=== PATIENT | female | born 1995 | race Caucasian/White ===

== ENCOUNTER 2017-05-17 21:51 | Emergency (ER) | END 2017-05-18 02:06 | disposition left against medical advice (07) ==

== ENCOUNTER 2017-10-22 12:04 | Emergency (ER) | END 2017-10-22 17:10 | disposition home or self-care (01) ==

== ENCOUNTER 2017-10-25 12:17 | Emergency (ER) | END 2017-10-25 14:46 | disposition home or self-care (01) ==

== ENCOUNTER 2018-02-22 17:28 | Outpatient (CLI) | END 2018-02-22 21:05 | disposition home or self-care (01) ==

== ENCOUNTER 2018-03-31 09:04 | Outpatient (CLI) | END 2018-03-31 10:06 | disposition home or self-care (01) ==

== ENCOUNTER 2018-05-05 18:38 | Outpatient (CLI) | payer MEDICAID ==
[~2018-05-05] VITALS: Ht 160 cm; Wt 73.5 kg
[~2018-05-05 18:38] MED LIST: ACET325T33 PO; CALC600T24 PO; FERR134T PO; PREN1TAB62 PO
[2018-05-05 18:51] VITALS: BP 114/62; PULSE 87; RESP 19; Ht 160 cm; Wt 73.5 kg
[2018-05-05] MEDS ORDERED: ACETAMINOPHEN 500 MG TAB PO STA (22:09)
[2018-05-05] MEDS ORDERED: LACTATED RINGER'S 1,000 ML IV ONE (22:30)
--- NOTE | 2018-05-06 02:05 | PN ---
Triage Information Date/Time Late entry note for exam for May 05, 2018 Reason for visit: Uterine contractions Weeks of Gestation 33 weeks and 6 days /Para 3 para 2 Diabetes: none Hypertention: none Additional information 23-year-old with IUP at 33 weeks and 6 days presented with complaint of uterine contractions and lower abdominal discomfort. She denies leaking of fluid, vaginal bleeding or decreased movement. Denies any complication during her course. Denies any urinary symptoms. Objective Vital Signs Date Temp Pulse Resp B/P (MAP) Pulse Ox O2 O2 Flow FiO2 Time Delivery Rate 05/05/18 98.1 87 19 114/62 18:51 (79) Heart Rate: 130's Heart Rate Comments Category 1 Contractions: >10 Minutes Apart Exam General appearance: Alert and oriented x4 appears to be in mild distress. Abdomen: Soft, gravid, fundal height consider gestational age Rare contractions noted on the monitor Symptoms resolved after hydration Exam: Cervix closed and long testing reassuring Cervical length: 4.7 cm BPP: 11/18 Results/Medications Results 24 hrs Laboratory Tests Test 05/05/18 20:30 Urine Color STRAW Urine Clarity CLEAR Urine pH 6.0 Urine Specific [place] 1.010 Urine Ketones NEGATIVE Urine Nitrite NEGATIVE Urine Bilirubin NEGATIVE Urine Urobilinogen NEGATIVE Urine Leukocyte Esterase NEGATIVE Urine Hemoglobin NEGATIVE Urine Glucose NEGATIVE Urine Total Protein NEGATIVE Imaging Results PROCEDURE: US OB biophysical profile. Ultrasound cervix CLINICAL INDICATION: decreased movements, PTL TECHNIQUE: Multiple sonographic images of the pelvis were obtained. In addition, transvaginal images of the cervix were obtained. The images were reviewed on a PACS workstation. COMPARISON: 03/31/18 FINDINGS: The cervix measures 4.7 cm in length. There is a single live intrauterine gestation. Cardiac activity is present with 163 beats per minute. There is a vertex transverse right presentation. The placenta is fundal. There is no evidence of placental abruption. There is a normal amount of amniotic fluid with an COLE = 19.6 cm. Biophysical profile: movement 2/2 tone 2/2. breathing 2/2 COLE 2/2 Total 11/18 RPTAT: AA . IMPRESSION: Normal biophysical profile. Cervix measures 4.7 cm in length. Disposition: Discharge Assessment/Plan IUP at 33 weeks and 6 days False labor pain Resolved with IV hydration and Tylenol Patient was asymptomatic prior to discharge home testing reassuring Strict labor precautions kick count follow-up with primary OB office within 48 hours after discharge with the hospital discussed with patient Advised patient to contact OB office and report current visit to triage for follow-up plan Patient verbalized understanding. All questions were answered to patient's best satisfaction. "Oral hydration discussed with patient NATALIE MALIK MD May 06, 2018 02:05
== END 2018-05-06 02:06 | disposition home or self-care (01) ==
LOC: OBT 18:38 → L-D 18:41 → OBT 05-06 02:06
PROVIDERS: ATTEND Obstetrics & Gynecology
DX: O62.9 Abnormality of forces of labor, unspecified (principal); Z3A.33 33 weeks gestation of pregnancy
CPT/HCPCS: 76817; 76818; 81003; 96360; 96361; J7120; Z7500; Z7610; G0463

== ENCOUNTER 2018-06-01 16:06 | Outpatient (CLI) | payer MEDICAID ==
[~2018-06-01] VITALS: Ht 160 cm; Wt 74.5 kg
[~2018-06-01 16:06] MED LIST changes: -ACET325T33 PO
[2018-06-01 16:44] VITALS: Ht 160 cm; Wt 74.5 kg
[2018-06-01 16:45] VITALS: BP 118/56; PULSE 82; RESP 18
--- NOTE | 2018-06-01 18:32 | TRIAGE ---
OB Triage Datetime Report Generated by CPN: 06/01/2018 18:32 Datetime: 06/01/2018 16:49 Labor Evaluation Frequency: 0 Monitor Mode: External Pattern: Normal: <= 5 Contractions in 10 Minutes Resting Tone [place]: Relaxed Heart Rate FHR Baseline Rate: 135 Monitor Mode: External US Variability: Moderate 6-25 bpm Accelerations: 15X15 Decelerations: None Category: Category I Datetime: 06/01/2018 16:48 Assessment Type: Triage Maternal Assessment Level of Consciousness: Fully Conscious DTR's/Clonus: DTRs 2+; No Clonus Headache: Denies Blurred Vision: No Respiratory Effort: Unlabored; Regular Rhythm; Equal Expansion Breath Sounds, Left: Clear and Equal Breath Sounds, Right: Clear and Equal Nausea/Vomiting: Denies RUQ Epigastric Pain: Denies Lower Extremities Edema: None Degree: None Upper Extremities Edema: None Degree: None Facial Edema: None Fall Risk Assessment History of Falling: (0) No Secondary Diagnosis: (0) No Ambulatory Aid: (0) Bedrest/Nurse Assist IV Therapy: (0) No Gait: (0) Normal/Bedrest/Immobile Mental Status: (0) Oriented to Own Ability Fall Score: 0 Fall Risk Score Definition: No Risk: No action required Datetime: 06/01/2018 16:47 Time of Arrival: 06/01/2018 16:04 EGA: 37.5 Arrived By: Ambulatory Arrived From: Dr. Malik Chief Complaint: UC's and leaking Movement: Present Contractions: Irregular Rupture of Membranes: Unsure Vaginal Bleeding: Normal Show Vaginal Discharge: Present Recent Sexual Intercouse: Denies Abdominal Trauma: Not Applicable Patient Complaints: Contractions; Other Initial Plan: NST BPP COLE AND ROM+ Datetime: 05/21/2018 18:05 EGA: 36.1 Datetime: 05/05/2018 18:53 Fall Score: 0 Fall Risk Score Definition: No Risk: No action required Datetime: 03/31/2018 09:14 Fall Score: 0 Fall Risk Score Definition: No Risk: No action required Datetime: 03/31/2018 09:13 EGA: 28.6 Datetime: 02/22/2018 18:36 EGA: 23.4 Datetime: 02/22/2018 17:31 Fall Score: 0 Fall Risk Score Definition: No Risk: No action required
--- NOTE | 2018-06-19 01:07 | PN ---
Triage Information Date/Time Reason for visit: Possible leakage of fluid Weeks of Gestation 37 weeks and 3 days /Para Diabetes: none Hypertention: none Objective Heart Rate: 140's Contractions: None Results/Medications Imaging Results There is a single live intrauterine gestation. heart rate is 128 beats per minute. The position is cephalic. The placenta is fundal, grade II - III. The COLE is 11.2 cm. Breathing Movement: 2 Gross Body Movement: 2 Tone: 2 Qualitative Amniotic Fluid Volume: 2 TOTAL: 8 IMPRESSION: 1. Single viable intrauterine gestation. 2. Biophysical profile = 8. 3. COLE = 11.2 cm. Disposition: Discharge Assessment/Plan 23 years old with single intrauterine at 37 weeks and 3days complaining of possible leakage of fluid. she states good movement. She denies nausea, vomiting, shortness of breath, chest pain, headache, visual changes, vaginal bleeding. heart rate is category 1 she has no uterine contractions. Speculum exam performed, no leakage or gush of fluid seen. Nitrazine and ROM plus very positive. She discharged home in stable condition with follow-up with her primary OB in 2-3 days. Sign and symptom of labor, preeclampsia, kick count discussed in detail with patient. She expressed understanding. All of her questions answered. Late entry note. Patient seen on 06/01/2018. ROMÁN VIVAR Jun 19, 2018 01:07
== END 2018-06-01 18:25 | disposition home or self-care (01) ==
LOC: OBT 16:06 → L-D 16:07 → OBT 18:25
PROVIDERS: ATTEND Obstetrics & Gynecology
DX: O41.93X0 Disorder of amniotic fluid and membranes, unspecified, third trimester, not applicable or unspecified (principal); Z3A.37 37 weeks gestation of pregnancy
CPT/HCPCS: 76818; 84112; Z7500; G0463

== ENCOUNTER 2018-06-09 19:12 | Outpatient (CLI) | payer MEDICAID ==
[~2018-06-09] VITALS: Ht 160 cm; Wt 75.7 kg
[2018-06-09 19:29] VITALS: Ht 160 cm; Wt 75.7 kg
[2018-06-09 19:30] VITALS: BP 121/68; PULSE 77; RESP 18
--- NOTE | 2018-06-09 21:22 | PN ---
Triage Information Date/Time Reason for visit: Abd/pelvic pain Weeks of Gestation 38 weeks /Para Diabetes: none Hypertention: none Objective Vital Signs Date Temp Pulse Resp B/P (MAP) Pulse Ox O2 O2 Flow FiO2 Time Delivery Rate 06/09/18 98.0 77 18 121/68 Room Air 19:30 (85) Heart Rate: 130's Contractions: >10 Minutes Apart Results/Medications Result Diagram: 06/09/182029 Results 24 hrs Laboratory Tests Test 06/09/18 19:15 06/09/18 20:30 Urine Color YELLOW Urine Clarity SLIGHTLY CLOUDY A Urine pH 6.0 Urine Specific [place] 1.011 Urine Ketones NEGATIVE Urine Nitrite NEGATIVE Urine Bilirubin NEGATIVE Urine Urobilinogen 1+ H Urine Leukocyte Esterase NEGATIVE Urine Microscopic RBC 0 Urine Microscopic WBC 1 Urine Squamous Epithelial Cells FEW Urine Bacteria FEW A Urine Hemoglobin NEGATIVE Urine Glucose 1+ H Urine Total Protein NEGATIVE White Blood Count 5.6 # Red Blood Count 3.51 L Hemoglobin 8.8 L Hematocrit 28.4 L Mean Corpuscular Volume 80.9 L Mean Corpuscular Hemoglobin 25.1 L Mean Corpuscular Hemoglobin Concent 31.0 L Red Cell Distribution Width 15.0 H Platelet Count 322 Mean Platelet Volume 9.8 Immature Granulocytes % 0.700 H Neutrophils % 58.0 Lymphocytes % 27.3 Monocytes % 12.2 H Eosinophils % 1.4 Basophils % 0.4 Nucleated Red Blood Cells % 0.0 Immature Granulocytes # 0.040 H Neutrophils # 3.3 Lymphocytes # 1.5 Monocytes # 0.7 Eosinophils # 0.1 Basophils # 0.0 Nucleated Red Blood Cells # 0.0 Disposition: Discharge Assessment/Plan 23 years old with single intrauterine at 38 weeks with a NEYMAR of 06/16/2018 complaining of back pain. She states good movement. She arcelia es nausea, vomiting, shortness of breath, chest pain, headache, visual changes, vaginal bleeding or LOF. Her exam was unremarkable - FHR: No sign of metabolic acidosis- Category I - Continuous EFM, toco - Contractions: None - Ultrasound performed COLE of 8.8, biophysical profile 8 out of 8 - CBC within normal limits, urinalysis normal - Symptoms and sign of labor, preeclampsia, kick count discussed with patient, she voiced understanding. All of her questions answered. - Patient was discharged home in stable condition with the appropriate discharge instructions provided. I would like patient to have close follow-up with her primary physician or outpatient clinic in 1-2 days or return to triage for worsening symptoms or any other urgent concerns. ROMÁN VIVAR Jun 09, 2018 21:22
--- NOTE | 2018-06-09 21:29 | TRIAGE ---
OB Triage Datetime Report Generated by CPN: 06/09/2018 21:29 Datetime: 06/09/2018 19:50 Vaginal Exam Dilatation (cms): 1.0 Effacement (%): 0 Station: -4 Exam By: Mark Fontanez RN Membrane Status: Intact Vaginal Bleeding: None Cervix, Consistency: Moderate Cervix, Position: Posterior Presentation 'A': Cephalic Datetime: 06/09/2018 19:24 Time of Arrival: 06/09/2018 19:07 Arrived By: Wheelchair Arrived From: Home Chief Complaint: Back pain that radiates to her stomach Movement: Present Contractions: Regular Contractions: Every 5 min Rupture of Membranes: Denies Vaginal Bleeding: None Vaginal Discharge: Denies Recent Sexual Intercouse: Denies Abdominal Trauma: Not Applicable Patient Complaints: Back Pain Time Provider Notified: 06/09/2018 20:10 Provider Notified: Hadadian Initial Plan: CEFM, VE Datetime: 06/09/2018 19:20 Stage of : OB Triage Assessment Type: Triage Maternal Assessment Level of Consciousness: Fully Conscious DTR's/Clonus: DTRs 2+; No Clonus Headache: Denies Blurred Vision: No Respiratory Effort: Unlabored; Regular Rhythm; Equal Expansion Breath Sounds, Left: Clear and Equal Breath Sounds, Right: Clear and Equal Nausea/Vomiting: Denies RUQ Epigastric Pain: Denies Lower Extremities Edema: None Degree: None Upper Extremities Edema: None Degree: None Facial Edema: None Temperature Route: Oral Fall Risk Assessment History of Falling: (0) No Secondary Diagnosis: (0) No Ambulatory Aid: (0) Bedrest/Nurse Assist IV Therapy: (0) No Gait: (0) Normal/Bedrest/Immobile Mental Status: (0) Oriented to Own Ability Fall Score: 0 Fall Risk Score Definition: No Risk: No action required Pain Assessment Pain Scale: 7 Pain Presence: Intermittent Pain Type: Cramping; Sharp Pain Location: Abdomen; Back Pain Assessment Comments: Lower back pain that radiates to her lower abdomen. Datetime: 06/01/2018 18:17 Labor Evaluation Frequency: 0 Monitor Mode: External Pattern: Normal: <= 5 Contractions in 10 Minutes Resting Tone [place]: Relaxed Contraction Comments: NONE NOTED Heart Rate FHR Baseline Rate: 125 Monitor Mode: External US FHR Baseline Changes: No Baseline Change Variability: Moderate 6-25 bpm Accelerations: 15X15 Decelerations: None Category: Category I Datetime: 06/01/2018 16:48 Fall Score: 0 Fall Risk Score Definition: No Risk: No action required Datetime: 06/01/2018 16:47 EGA: 37.5 Time Provider Notified: 06/01/2018 18:06 Provider Notified: DR HADADIAN Datetime: 05/21/2018 18:05 EGA: 36.1 Datetime: 05/05/2018 18:53 Fall Score: 0 Fall Risk Score Definition: No Risk: No action required Datetime: 03/31/2018 09:14 Fall Score: 0 Fall Risk Score Definition: No Risk: No action required Datetime: 03/31/2018 09:13 EGA: 28.6 Datetime: 02/22/2018 18:36 EGA: 23.4 Datetime: 02/22/2018 17:31 Fall Score: 0 Fall Risk Score Definition: No Risk: No action required
== END 2018-06-09 21:05 | disposition home or self-care (01) ==
LOC: OBT 19:12 → L-D 19:14 → OBT 21:05
PROVIDERS: ATTEND Obstetrics & Gynecology
DX: O26.893 Other specified pregnancy related conditions, third trimester (principal); Z3A.38 38 weeks gestation of pregnancy; R10.2 Pelvic and perineal pain
CPT/HCPCS: 76818; 81001; 85025; Z7500; 81003; G0463

== ENCOUNTER 2018-06-12 13:10 | Inpatient (IN) | payer MEDICAID ==
[~2018-06-12] VITALS: Ht 160 cm; Wt 74.8 kg
[2018-06-12 13:28] VITALS: BP 122/75; PULSE 88; RESP 18; Ht 160 cm; Wt 74.8 kg
[2018-06-12] MEDS ORDERED: MISOPROSTOL 200 MCG TAB PR PRN (15:00)
[2018-06-12] MEDS ORDERED: CARBOPROST 250 MCG INJ IM PRN (15:00)
[2018-06-12] MEDS ORDERED: IBUPROFEN 600 MG TAB PO PRN (15:00)
[2018-06-12] MEDS ORDERED: METHYLERGONOVINE 0.2 MG INJ IM PRN (15:00)
[2018-06-12] MEDS ORDERED: BUTORPHANOL 1 MG INJ IV PRN (15:00)
[2018-06-12] MEDS ORDERED: OXYTOCIN 30 UNITS/LR 500 ML IV SCH ×2 (15:00)
[2018-06-12] MEDS ORDERED: OXYTOCIN 30 UNITS/LR 500 ML IV PRN (15:00)
[2018-06-12] MEDS ORDERED: LIDOCAINE 1% (MPF) 30 ML INJ INJ PRN (15:00)
[2018-06-12] MEDS ORDERED: BUTORPHANOL 2 MG INJ IV PRN (15:00)
--- NOTE | 2018-06-12 15:15 | HP ---
Date/Time of Note Date/Time of Note DATE: 06/12/18 TIME: 15:11 OB - History Hx of Present Free Text/Dictation 23-year-old 3 para 2 at 39 weeks and 2 days of gestation with estimated date 06/16/2018 Patient presents with chief complaint of decreased movement She reports occasional contractions, denies any leaking fluid or vaginal bleeding GBS is negative Estimated Due Date: Jun 16, 2018 : 3 Para: 2 Care: Good Care Obstetrical Complications: None Medical Complications: None Past Family/Social History * Past Medical, Surgical, Family and Obstetric Histories reviewed from chart. OB Admission Exam Vital Signs Vital Signs Vital Signs Date Temp Pulse Resp B/P (MAP) Pulse Ox O2 O2 Flow FiO2 Time Delivery Rate 06/12/18 97.6 88 18 122/75 Room Air 13:28 (91) Physical Exam HEENT: WNL Heart: Rhythm Normal Lungs: Clear, Equal Abdomen: WNL Extremities: Normal Reflexes: Normal Cervical Dilatation: 1cm Effacement: 0% Station: -3 Membranes: Intact Heart Rate: 140's Accelerations: Accelerations Present Decelerations: No Decelerations Varibility: Moderate Contractions on Admission: 6-10 Minutes Apart Intensity: Mild Last 72 hours Lab Results ROM negative PROCEDURE: US OB biophysical profile. CLINICAL INDICATION: decreased movements, TECHNIQUE: Multiple sonographic images of the pelvis were obtained. The images were reviewed on a PACS workstation. COMPARISON: US PELVIS 06/09/2018 FINDINGS: There is a single live intrauterine gestation. Cardiac activity is present with 128 beats per minute. There is a vertex presentation. The placenta is fundal. There is no evidence of placental abruption. There is a decreased amount of amniotic fluid with an COLE = 4.9 cm. Biophysical profile: movement 2/2 tone 2/2. breathing 2/2 COLE 0/2 Total 6/8 RPTAT: AA . IMPRESSION: Abnormal biophysical profile. Oligohydramnios. . .Duncan Villagomez MD, Date Time Electronically viewed and signed by .Duncan Villagomez MD, on 06/12/2018 14:23 .S/ CC: DREW ROMERO MD [phone] PROCEDURE: Obstetrical ultrasound. CLINICAL INDICATION: , evaluation. Pelvic pain. TECHNIQUE: Transabdominal sonographic images of the uterus obtained after first trimester, greater than 14 weeks gestation. Single intrauterine gestation present. Complete anatomic survey is not performed in this examination; if needed an additional dedicated examination can be performed for complete anatomic survey. COMPARISON: US PELVIS 06/12/2018 FINDINGS: Single intrauterine gestation. There is a cephalic presentation. Measurements were made in order to determine age. The results are as follows: BPD = 38 weeks 6 day(s) HC = 39 weeks 6 day(s) AC = 37 weeks 3 day(s) FL = 37 weeks 1 day(s) COLE (cm) = not measured Heart rate = 161 beats per minute The placenta is fundal. There is no evidence for an abruption or placenta previa. Ovaries are not visualized. IMPRESSION: Single intrauterine gestation of approximately 38 weeks 2 days by ultrasound criteria. [place] estimated weight = 3322 g; 33 percentile for gestational age of 39 weeks 3 days. RPTAT: AADD .Herber Colindres MD, MD Date Time Electronically viewed and signed by .Herber Colindres MD, on 06/12/2018 18:24 .B/ CC: DREW ROMERO MD [id number] OB Assessment/Plan Reason for admission: other (Oligohydramnios) Plan: Induction Induction Method: per Misoprostol Protocol Other plan: Induction for oligohydramnios Pain meds as needed DREW ROMERO MD Jun 12, 2018 15:15
--- NOTE | 2018-06-12 15:26 | TRIAGE ---
OB Triage Datetime Report Generated by CPN: 06/12/2018 15:26 Datetime: 06/12/2018 15:22 Labor Evaluation Frequency: 0 Monitor Mode: External Quality: Mild Pattern: Normal: <= 5 Contractions in 10 Minutes Resting Tone [place]: Relaxed Heart Rate FHR Baseline Rate: 120 Monitor Mode: External US Variability: Moderate 6-25 bpm Accelerations: 15X15 Decelerations: None Category: Category I Datetime: 06/12/2018 14:35 Vaginal Exam Dilatation (cms): 1.0 Effacement (%): 0 Station: -2 Exam By: alexandra Vaginal Bleeding: None Cervix, Consistency: Firm Cervix, Position: Posterior Presentation 'A': Cephalic Datetime: 06/12/2018 14:10 Labor Evaluation Frequency: X3 Monitor Mode: External Duration (sec)2399: 40-50 Quality: Mild Pattern: Normal: <= 5 Contractions in 10 Minutes Resting Tone [place]: Relaxed Heart Rate FHR Baseline Rate: 115 Monitor Mode: External US Variability: Moderate 6-25 bpm Accelerations: 15X15 Decelerations: None Category: Category I Datetime: 06/12/2018 13:22 Time of Arrival: 06/12/2018 13:01 EGA: 39.2 Arrived By: Ambulatory Arrived From: Home Chief Complaint: dfm, spotting, pelvic pressure Movement: Decreased Contractions: Denies/Absent Rupture of Membranes: Denies Vaginal Bleeding: None Vaginal Discharge: Present Recent Sexual Intercouse: Denies Abdominal Trauma: Not Applicable Patient Complaints: Cramping Time Provider Notified: 06/12/2018 14:08 Provider Notified: nanda Initial Plan: nst, u/a Datetime: 06/12/2018 13:16 Pain Assessment Pain Scale: 6 Pain Presence: Constant Pain Type: Cramping; Pressure; Ache Pain Location: Abdomen; Right Groin; Left Groin Pain Goal: 6 Pain Relief Measures: Comfort Measures Pain Assessment Comments: STATES PAIN IS CONSTANT BUT TOLERABLE Datetime: 06/12/2018 13:10 Assessment Type: Triage Maternal Assessment Level of Consciousness: Fully Conscious DTR's/Clonus: DTRs 2+; No Clonus Headache: Denies Blurred Vision: No Respiratory Effort: Unlabored; Regular Rhythm; Equal Expansion Breath Sounds, Left: Clear and Equal Breath Sounds, Right: Clear and Equal Nausea/Vomiting: Denies RUQ Epigastric Pain: Denies Lower Extremities Edema: None Degree: None Upper Extremities Edema: None Degree: None Facial Edema: None Fall Risk Assessment History of Falling: (0) No Secondary Diagnosis: (0) No Ambulatory Aid: (0) Bedrest/Nurse Assist IV Therapy: (0) No Gait: (0) Normal/Bedrest/Immobile Mental Status: (0) Oriented to Own Ability Fall Score: 0 Fall Risk Score Definition: No Risk: No action required Comment: C/O DFM SINCE LAST NIGHT AND SOME SPOTTING AFTER VOIDING X1 THIS AM. FHTS AUDIBLE. WILL ST ART NST AND CALL OB FOR FURTHER ORDERS Datetime: 06/09/2018 20:53 Labor Evaluation Frequency: NONE Monitor Mode: External Resting Tone [place]: Relaxed Datetime: 06/09/2018 20:22 Labor Evaluation Frequency: NONE Monitor Mode: External Resting Tone [place]: Relaxed Heart Rate FHR Baseline Rate: 130 Monitor Mode: External US Variability: Moderate 6-25 bpm Accelerations: 15X15 Decelerations: None Category: Category I Datetime: 06/09/2018 20:00 Labor Evaluation Frequency: NONE Monitor Mode: External Resting Tone [place]: Relaxed Heart Rate FHR Baseline Rate: 125 Monitor Mode: External US Variability: Moderate 6-25 bpm Accelerations: 15X15 Decelerations: None Category: Category I Datetime: 06/09/2018 19:24 EGA: 38.6 Datetime: 06/09/2018 19:20 Fall Score: 0 Fall Risk Score Definition: No Risk: No action required Datetime: 06/01/2018 16:48 Fall Score: 0 Fall Risk Score Definition: No Risk: No action required Datetime: 06/01/2018 16:47 EGA: 37.5 Datetime: 05/21/2018 18:05 EGA: 36.1 Datetime: 05/05/2018 18:53 Fall Score: 0 Fall Risk Score Definition: No Risk: No action required Datetime: 03/31/2018 09:14 Fall Score: 0 Fall Risk Score Definition: No Risk: No action required Datetime: 03/31/2018 09:13 EGA: 28.6 Datetime: 02/22/2018 18:36 EGA: 23.4 Datetime: 02/22/2018 17:31 Fall Score: 0 Fall Risk Score Definition: No Risk: No action required
[2018-06-12] MEDS: LACTATED RINGER'S 1,000 ML IV SCH ×2 (16:19→23:19)
[2018-06-12] MEDS: MISOPROSTOL 50 MCG CAPSULE PO PRN ×2 (17:27→21:37)
[2018-06-13] MEDS: MISOPROSTOL 50 MCG CAPSULE PO PRN (01:34)
[2018-06-13] MEDS: LACTATED RINGER'S 1,000 ML IV SCH ×3 (06:40→20:38)
[2018-06-13] MEDS ORDERED: OXYTOCIN 30 UNITS/LR 500 ML IV PRN (07:30)
[2018-06-13] MEDS ORDERED: FENTAnyl 2MCG/ML-ROPIV 0.2% 100 ML ONE (07:32)
--- NOTE | 2018-06-13 07:45 | PREAC ---
Date/Time of Note Date/Time of Note DATE: 06/13/18 TIME: 07:43 Anesthesia Eval and Record Evaluation Time Pre-Procedure Interview DATE: 06/13/18 TIME: 06:59 Age 23 Sex female NPO: 8 hrs Preoperative diagnosis iup @ 39 wks., , labor Planned procedure ernie Past Medical History Past Medical History: Includes : : (3), Para: (2), Gestational age: (39 wks.) Surgery & Anesthesia Issues No known issue Meds Anticoagulation: No Beta Baljit within 24 hr: No Reason Beta Baljit not given: Pt. not on B-Baljit Reported Medications Vit-Iron Fumarate-FA ( Vitamin Tablet) 1 Each Tablet, 1 TAB PO DAILY, TAB 01/16/16 Calcium Carbonate* (Calcium Carbonate*) 600 MG Ca Tab, 600 MG PO DAILY, TAB 11/29/15 Ferrous Sulfate (Iron) 134 Mg Tablet, 134 MG PO BID, TAB 11/29/15 Current Medications Lactated Ringer's 1,000 ml @ 125 mls/hr Q8H IV Last administered on 06/13/18at 06:40; Admin Dose 125 MLS/HR; Start 06/12/18 at 14:49 Butorphanol Tartrate (Stadol) 1 mg Q2H PRN IV .PAIN; Start 06/12/18 at 15:00 Butorphanol Tartrate (Stadol) 2 mg Q2H PRN IV .PAIN Last administered on 06/12/18at 22:37; Admin Dose 2 MG; Start 06/12/18 at 15:00 Lidocaine (Xylocaine 1% (Mpf)) 30 ml ONCE PRN INJ .EPISIOTOMY; Start 06/12/18 at 15:00 Oxytocin/Lactated Ringer's 500 ml @ 500 mls/hr ONCE POST IV ; Start 06/12/18 at 15:00 Oxytocin/Lactated Ringer's 500 ml @ 125 mls/hr POST IV ; Start 06/12/18 at 15:00 Ibuprofen (Motrin) 600 mg ONCE PRN PO .PAIN 1-5; Start 06/12/18 at 15:00 Oxytocin/Lactated Ringer's 500 ml @ 0 mls/hr ONCE PRN IV .VAGINAL BLEEDING; St art 06/12/18 at 15:00 Methylergonovine Maleate (Methergine) 0.2 mg ONCE PRN IM .VAGINAL BLEEDING; Sta rt 06/12/18 at 15:00 Carboprost Tromethamine (Hemabate) 250 mcg ONCE PRN IM .VAGINAL BLEEDING; Start 06/12/18 at 15:00 Misoprostol (Cytotec) 1,000 mcg ONCE PRN RI .VAGINAL BLEEDING; Start 06/12/18 at 15:00 Misoprostol (Cytotec 50 Mcg Capsule) 50 mcg Q4 PRN PO LABOR INDUCTION Last administered on 06/13/18at 01:34; Admin Dose 50 MCG; Start 06/12/18 at 15:00 Oxytocin/Lactated Ringer's 500 ml @ 0 mls/hr FOR INDUCTION PRN IV IF CONTRACTIONS SPACE OUT; Start 06/13/18 at 07:30 Meds reviewed: Yes Allergies Coded Allergies: No Known Drug Allergy (Verified Allergy, Unknown, 06/12/18) Allergies Reviewed: Yes Labs/Studies Labs Reviewed: Reviewed by anesthesiologist Result Diagram: 06/12/18 1610 Laboratory Tests 06/12/18 16:10 Blood Bank Test 06/12/18 16:10 Antibody Screen NEGATIVE Blood Type O POSITIVE Rh Immune Globulin Candidate NO test: Positive Studies: ECG (n/a), CXR (n/a) Pre-procedure Exam Last vitals Vital Signs Date Temp Pulse Resp B/P (MAP) Pulse Ox O2 O2 Flow FiO2 Time Delivery Rate 06/12/18 97.6 88 18 122/75 Room Air 13:28 (91) Airway: Adequate mouth opening, Adequate thyromental dist Mallampati: Mallampati II Teeth: Normal Lung: Normal Heart: Normal ASA Physical Status ASA physical status: 2 Emergency: E Planned Anesthetic Neuraxial: Epidural Planned Pain Management Epidural, Local by surgeon Pre-operative Attestations Prior to commencing anesthesia and surgery, the patient was re-evaluated, there was verification of: *The patient's identity *The results of appropriate recent lab work and preoperative vital signs *The above evaluation not changing prior to induction *Anesthetic plan, risk benefits, alternative and complications discussed with patient/family; questions answered; patient/family understands, accepts and wishes to proceed. [employer] used AKASH JARRETT MD Jun 13, 2018 07:45
--- NOTE | 2018-06-13 07:46 | PAC ---
Date/Time of Note Date/Time of Note DATE: 06/14/18 TIME: 15:00 Post-Anesthesia Notes Post-Anesthesia Note Last documented vital signs Vital Signs Date Temp Pulse Resp B/P (MAP) Pulse Ox O2 O2 Flow FiO2 Time Delivery Rate 06/12/18 97.6 88 18 122/75 Room Air 13:28 (91) Activity: WNL Respiratory function: WNL Cardiovascular function: WNL Mental status: Baseline Pain reasonably controlled: Yes Hydration appropriate: Yes Nausea/Vomiting absent: Yes AKASH JARRETT MD Jun 13, 2018 07:46
[2018-06-13] MEDS ORDERED: DIPHENHYDRAMINE 50 MG INJ IV PRN (08:00)
[2018-06-13] MEDS ORDERED: NALBUPHINE HCL (10 MG/1 ML) INJ IV PRN (08:00)
[2018-06-13] MEDS ORDERED: NALOXONE (0.4 MG/ML) INJ IV PRN (08:00)
[2018-06-13] MEDS ORDERED: FENTAnyl 2MCG/ML-ROPIV 0.2% 100 ML BAG EPI SCH (08:00)
[2018-06-13] MEDS ORDERED: ONDANSETRON 4 MG INJ IV PRN (08:00)
[2018-06-13] MEDS ORDERED: MINERAL OIL LIGHT 10 ML VIAL TOP PRN (21:00)
--- NOTE | 2018-06-13 21:52 | LDN ---
Date/Time of Note Date/Time of Note DATE: 06/13/18 TIME: 21:49 Delivery Summary of normal male with nuchal cordx1 after IOL for oligohydramnios Weeks of Gestation 39w3d Placenta Delivered: Spontaneously, Intact & Complete Meconium: none Episiotomy: No Perineal laceration: 0 Anesthesia type: Epidural Estimated blood loss: 200 Sponge & Needle done & correct: Yes All needle counts correct: Yes Any foreign bodies felt in the: No Delivery Information Sex Sex: male Apgars 1 Minute: 9 5 Minute: 9 Suctioning Nose & mouth suctioned at kermit: Yes Delee suction performed: No Umbilical Cord Umbilical cord with: 3 Vessels Cord presentations: nuchal cord Nuchal cord present X: 1 Cord Blood was obtained: Yes Mother & Baby Disposition Disposition Mom & Baby to Maternity; Good: Yes Mom transferred to: Other Baby to NICU: No () ZACH ANDERSON MD Jun 13, 2018 21:52
[2018-06-14] VITALS: BP 105/59; PULSE 66; RESP 18
[2018-06-14] MEDS ORDERED: METHYLERGONOVINE 0.2 MG INJ IM PRN (00:30)
[2018-06-14] MEDS ORDERED: ZOLPIDEM 5 MG TAB PO PRN (00:30)
[2018-06-14] MEDS ORDERED: LANOLIN HPA 1 PKT TOP PRN (00:30)
[2018-06-14] MEDS ORDERED: BENZOCAINE 20% 56 ML SPRAY TOP PRN (00:30)
[2018-06-14] MEDS ORDERED: CARBOPROST 250 MCG INJ IM PRN (00:30)
[2018-06-14] MEDS ORDERED: MISOPROSTOL 200 MCG TAB PR PRN (00:30)
[2018-06-14] MEDS ORDERED: WITCH HAZEL/GLYCERIN PAD PR PRN (00:30)
[2018-06-14] MEDS ORDERED: OXYCODONE/ASPIRIN (4.88/325) TAB PO PRN ×2 (00:30)
[2018-06-14] MEDS ORDERED: OXYTOCIN 30 UNITS/LR 500 ML IV PRN (00:30)
[2018-06-14] MEDS: IBUPROFEN 600 MG TAB PO SCH ×4 (00:38→17:43)
[2018-06-14 04:00] VITALS: BP 99/52; PULSE 63; RESP 18
[2018-06-14 08:00] VITALS: BP 104/58; PULSE 60; RESP 18
[2018-06-14] MEDS: SENNA/DOCUSATE NA (8.6MG/50MG) TAB PO SCH ×2 (09:04→20:49)
[2018-06-14 16:00] VITALS: BP 98/61; PULSE 85; RESP 20
[2018-06-14 20:00] VITALS: BP 121/78; PULSE 72; RESP 18
[2018-06-14] MEDS: FERROUS GLUCONATE (EC) 325 MG TAB PO SCH (20:49)
[2018-06-15 03:58] VITALS: BP 115/70; PULSE 70; RESP 18
[2018-06-15] MEDS: IBUPROFEN 600 MG TAB PO SCH ×3 (06:00→12:00)
[2018-06-15 08:00] VITALS: BP 107/62; PULSE 65; RESP 18
[2018-06-15] MEDS ORDERED: DIPHTH/TET/ACEL PERTUSS (ADULT) 0.5 ML VIAL IM* ONE (09:00)
[2018-06-15] MEDS: FERROUS GLUCONATE (EC) 325 MG TAB PO SCH ×2 (09:01→14:00)
[2018-06-15] MEDS: SENNA/DOCUSATE NA (8.6MG/50MG) TAB PO SCH (09:01)
--- NOTE | 2018-06-16 21:44 | PN ---
Date/Time of Note Date/Time of Note DATE: 06/16/18 TIME: 21:43 OB Subjective Subjective Subjective late entry note. Patient seen on 06/14/2018 PPD#1 Patient is doing well. She denies nausea, vomiting, shortness of breath, chest pain, headache. She has been ambulating without difficulty, tolerating regular diet. Pain is well controlled on current medications OB Objective Objective Objective General: AAO X 3, comfortable, NAD, appropriate mood and affect. ABD: +BS. Soft, non-tender. Uterus 2 cm below umbilicus Flank: No CVA tenderness (B/L) LE: Mild edema. No clubbing, cyanosis, thigh or calf tenderness (B/L). Homans 'sign is negative s/p normal vaginal delivery. PPD# - AF, VSS - Baby is doing well, at bed side. She is bonding well - Contraception methods with R/B/A/FR discussed - Continue care - She has eceived Tdap vaccine during - Discharge home - Rx and instruction given - Follow up in 2 and 6 weeks at clinic Lungs: Clear Abdomen: WNL Extremities: Normal Reflexes: Normal Heart Rate: 140's OB Assessment/Plan Other plan: 23 years old 003 s/p normal vaginal delivery at 39 weeks and 2 days. PPD#1 - Contraception methods with R/B/A/FR discussed - Continue care - Discharge home tomorrow - Rx and instruction given - Follow up in 2 and 6 weeks at clinic ROMÁN VIVAR Jun 16, 2018 21:44
--- NOTE | 2018-06-16 21:50 | DS ---
Date/Time of Note Date/Time of Note DATE: 06/16/18 TIME: 21:49 Obstetrical Discharge Record Final Diagnosis Final Diagnosis: Term delivered Other Final Diagnosis Late entry note. Patient seen on 06/15/2008 23 years old 003 s/p normal vaginal delivery at 39 weeks and 2 days. PPD#2 - Contraception methods with R/B/A/FR discussed - Continue care - Discharge home - Rx and instruction given - Follow up in 2 and 6 weeks at clinic Vaginal Delivery Obstetrical Delivery: Spontaneous Condition on Discharge Physical Assessment Voiding: Yes Bowel Movement: Yes Breast: Soft, non-tender Fundus: Firm Calf Tenderness: No Patient Condition: Stable ROMÁN VIVAR Jun 16, 2018 21:50
== END 2018-06-15 14:52 | disposition home or self-care (01) | DRG 807 ==
LOC: L-D 13:10 → OBT 13:10 → L-D 14:43 → PP1 06-13 23:48
PROVIDERS: ADMIT Obstetrics & Gynecology; ATTEND Obstetrics & Gynecology
PROC: 10E0XZZ Delivery of Products of Conception, External Approach (ICD-10-PCS; principal; 2018-06-13)
DX: O41.03X0 Oligohydramnios, third trimester, not applicable or unspecified (principal); Z37.0 Single live birth; O36.8130 Decreased fetal movements, third trimester, not applicable or unspecified; O69.81X0 Labor and delivery complicated by cord around neck, without compression, not applicable or unspecified; Z3A.39 39 weeks gestation of pregnancy; Z23 Encounter for immunization
CPT/HCPCS: 62319; 76816; 76818; 84112; 85025; 85610; 85730; 86592; 86850; 86900; 86901; 87340; 90686; 90715; A4310; G0463; J0595; J2590; J3010; J7120

== ENCOUNTER 2018-10-07 09:39 | Emergency (ER) | payer MEDICAID ==
[~2018-10-07] VITALS: Ht 160 cm; Wt 72.7 kg
[~2018-10-07 09:39] MED LIST changes: -CALC600T24 PO
[2018-10-07 09:43] VITALS: BP 126/78; PULSE 68; RESP 22; Ht 160 cm; Wt 72.7 kg
--- NOTE | 2018-10-07 10:06 | ERD ---
ER Documentation Chief Complaint Chief Complaint diarrhea x 1 week HPI Patient is a 23 years old female presenting to the clinic for persistent watery diarrhea x 1 week. Patient reports starting off with chills, NBNB emesis that resolved after 2 days. Patient denies taking any OTC medication and denies all other ROS. Patient denies eating any odd food and denies recent travel. ROS All systems reviewed and are negative except as per history of present illness. Medications Home Meds Active Scripts Loperamide Hcl* (Imodium*) 2 Mg Capsule, 2 MG PO .AFTER EA LOOSE BM PRN for DIARRHEA, #10 TAB Prov:BART YANG PA-C 10/07/18 Reported Medications Vit-Iron Fumarate-FA ( Vitamin Tablet) 1 Each Tablet, 1 TAB PO DAILY, TAB 01/16/16 Ferrous Sulfate (Iron) 134 Mg Tablet, 134 MG PO BID, TAB 11/29/15 Allergies Allergies: Coded Allergies: No Known Drug Allergy (Verified Allergy, Unknown, 06/12/18) PMhx/Soc Medical and Surgical Hx: pt denies Medical Hx, pt denies Surgical Hx History of Surgery: No Anesthesia Reaction: No Hx Neurological Disorder: No Hx Respiratory Disorders: No Hx Cardiac Disorders: No Hx Psychiatric Problems: No Hx Miscellaneous Medical Probl: Yes (anemia) Hx Alcohol Use: No Hx Substance Use: No Hx Tobacco Use: No Smoking Status: Never smoker Physical Exam Vitals Vital Signs Date Temp Pulse Resp B/P (MAP) Pulse Ox O2 O2 Flow FiO2 Time Delivery Rate 10/07/18 97.8 68 22 126/78 99 09:43 (94) Physical Exam Const: No acute distress Head: Atraumatic Eyes: Normal Conjunctiva ENT: Normal External Ears, Nose and Mouth. Neck: Full range of motion. No meningismus. Resp: Clear to auscultation bilaterally Cardio: Regular rate and rhythm, no murmurs Abd: Soft, non tender, non distended. Normal bowel sounds Skin: No petechiae or rashes Neur: Awake and alert Psych: Normal Mood and Affect Procedures/MDM Patient was seen and evaluated for unexplained diarrhea x 1 week (possible IBS). Patient's physical exam is unremarkable and does not require any further work up. Patient is stable and ready for discharge. Patient will be given Loperamide and instructed to stay hydrated. F/U with PCP. Departure Diagnosis: Primary Impression: Diarrhea Diarrhea type: functional diarrhea Qualified Codes: K59.1 - Functional diarrhea Condition: Stable Patient Instructions: Treating Diarrhea Referrals: [facility] Additional Instructions: Patient advised to return to the ED immediately for new or worsening symptoms. Patient advised to follow up with primary care provider in the next 24-48 hours. Patient verbalized understanding and agrees with treatment plan and course of action. If patient has no primary care they may follow up with [facility] + [facility] [address] [place] [id number] or [facility] [id number] [place] [id number] or [facility] [address] [place] [address] BART YANG PA-C Oct 07, 2018 10:06
[2018-10-07] MEDS ORDERED: LOPE2CAP PO (10:07)
== END 2018-10-07 10:29 | disposition home or self-care (01) ==
LOC: FTE 09:39
DX: K59.1 Functional diarrhea (principal)
CPT/HCPCS: 99282